=== PATIENT | female | born 1955 | race Hispanic/Latino ===

== ENCOUNTER 2016-09-23 14:02 | Emergency (ER) | payer MEDICARE ==
[2016-09-23 15:01] VITALS: BP 159/92
== END 2016-09-23 23:27 | disposition left against medical advice (07) ==
LOC: ED 14:02
DX: T14.8 Other injury of unspecified body region (principal); F41.9 Anxiety disorder, unspecified; Z53.21 Procedure and treatment not carried out due to patient leaving prior to being seen by health care provider; W57.XXXA Bitten or stung by nonvenomous insect and other nonvenomous arthropods, initial encounter; Y93.9 Activity, unspecified; Y92.9 Unspecified place or not applicable; Y99.9 Unspecified external cause status

== ENCOUNTER 2017-10-14 12:48 | Emergency (ER) | payer MEDICARE ==
[2017-10-14 13:20] VITALS: BP 133/70
[2017-10-14] MEDS ORDERED: NACL 0.9% 1000 ML 1,000 ML IV ONE (15:25)
[2017-10-14] MEDS ORDERED: ZOFRAN IV ONE (15:26)
--- NOTE | 2017-10-14 15:27 | Event Note ---
Date: 10/14/17 She comes with nausea vomiting diarrhea that's been going on for last couple days patient states for last 4 days she has been nauseous as much as body aches all over patient says she has a history of bipolar. Lewis bloodwork IV fluids and IV Zofran and I will reevaluate the patient.
[2017-10-14 15:48] LABS: Basophils % (Auto) 0.4 % (0.0-1.8); Eosinophils # (Auto) 0.2 K/mm3 (0.0-0.4); Eosinophils % (Auto) 2.5 % (0.0-4.3); Hematocrit 43.2 % (30.3-42.9); Hemoglobin 14.3 gm/dl (10.1-14.3); Lymphocytes # (Auto) 1.6 K/mm3 (1.2-5.4); Lymphocytes % (Auto) 20.4 % (13.4-35.0); Mean Corpuscular HGB Conc 33 % (30-34); Mean Corpuscular Hemoglobin 28 pg (28-32); Mean Corpuscular Volume 85 fl (79-97); Monocytes # (Auto) 0.9 K/mm3 (0.0-0.8); Monocytes % (Auto) 11.3 % (0.0-7.3); Platelet Count 161 K/mm3 (140-440); Red Blood Count 5.11 M/mm3 (3.65-5.03); Red Cell Distribution Width 13.7 % (13.2-15.2)
[2017-10-14 15:56] LABS: BUN/Creatinine Ratio 26; Blood Urea Nitrogen 23 mg/dL (7-17); Calcium 9.4 mg/dL (8.4-10.2); Hemolysis Index 0
== END 2017-10-15 01:15 | disposition left against medical advice (07) ==
LOC: ED 12:48
DX: R11.0 Nausea (principal); Z53.21 Procedure and treatment not carried out due to patient leaving prior to being seen by health care provider
CPT/HCPCS: 36415; 80048; 84484; 85025